=== PATIENT | male | born 1995 | race American Indian/Alaskan Native ===

== ENCOUNTER 2018-08-08 23:26 | Emergency (ER) | payer OTHER ==
[2018-08-09 02:53] VITALS: BP 122/82
--- NOTE | 2018-08-09 03:47 | XRay Report ---
PROCEDURE: LEFT SHOULDER, 3 OR MORE VIEWS TECHNIQUE: LEFT shoulder radiographs including AP views in internal and external rotation and abduct ion. CPT 69804 HISTORY: Trauma COMPARISONS: None . FINDINGS: Fracture (s) and/or Dislocation(s): None . Joint space(s): Normal . Soft tissues: Normal . Bone mineralization: Normal . Foreign bodies: None . IMPRESSION: Normal Examination . This document is electronically signed by Blayne Bowling MD., August 09 2018 03:45:53 AM ET
[2018-08-09] MEDS ORDERED: IBUPROFEN PO ONE (05:30)
--- NOTE | 2018-08-09 05:59 | Emergency Department Report ---
ED Upper Extremity Inj HPI - General Chief Complaint: Shoulder Injury Stated Complaint: LEFT ARM DISCOMFORT Time Seen by Provider: 08/09/18 05:29 Source: patient Mode of arrival: Ambulatory Limitations: No Limitations - History of Present Illness Initial Comments: -year-old [place] male who presents for left shoulder pain 4 days patient works as laborer chemical processing removed he strained his shoulder pain is described at 4/10 aching exacerbated by lifting heavy loads movement twisting pain is relieved by rest is no numbness no tingling or swelling no paralysis range of motion is intact and unrestricted MD Complaint: Injury to:: shoulder Onset/Timin -: week(s) Other Extremity Injury: Shoulder: Left Other Injuries: none Handedness: right Place: home Severity scale (0 -10): 5 Worsens With: none Associated Symptoms: denies: weakness, numbness, neck pain, heard/felt popping sensat - Related Data Previous Rx's Medication Instructions Recorded Last Taken Type Cyclobenzaprine [Flexeril] 10 mg PO TID PRN #30 tablet 08/09/18 Unknown Rx Menthol/Camphor [[place] 1 applicatio TP QID PRN #1 tube 08/09/18 Unknown Rx Ointment] Naproxen 500 mg PO BID PRN #30 tablet 08/09/18 Unknown Rx Allergies Allergy/AdvReac Type Severity Reaction Status Date / Time No Known Allergies Allergy Verified 08/08/18 23:29 ED Review of Systems ROS: Stated complaint: LEFT ARM DISCOMFORT Other details as noted in HPI Constitutional: denies: chills, fever Eyes: denies: eye pain, eye discharge, vision change ENT: denies: ear pain, throat pain Respiratory: denies: cough, shortness of breath, wheezing Cardiovascular: denies: chest pain, palpitations Endocrine: no symptoms reported Gastrointestinal: denies: abdominal pain, nausea, diarrhea Genitourinary: denies: urgency, dysuria Musculoskeletal: other (shoulder pain ). denies: back pain, joint swelling, arthralgia, myalgia Skin: as per HPI Neurological: denies: headache, weakness, paresthesias Psychiatric: denies: anxiety, depression Hematological/Lymphatic: denies: easy bleeding, easy bruising ED Past Medical Hx - Past Medical History Previous Medical History?: Yes Hx GERD: Yes (2018) - Surgical History Past Surgical History?: No - Social History Smoking Status: Never Smoker - Medications Home Medications: Home Medications Medication Instructions Recorded Confirmed Last Taken Type Cyclobenzaprine [Flexeril] 10 mg PO TID PRN #30 tablet 08/09/18 Unknown Rx Menthol/Camphor [[place] 1 applicatio TP QID PRN #1 tube 08/09/18 Unknown Rx Ointment] Naproxen 500 mg PO BID PRN #30 tablet 08/09/18 Unknown Rx ED Physical Exam - General Limitations: No Limitations General appearance: alert, in no apparent distress - Head Head exam: Present: atraumatic, normocephalic - Eye Eye exam: Present: normal appearance, PERRL, EOMI Pupils: Present: normal accommodation - ENT ENT exam: Present: normal orophraynx, mucous membranes moist, TM's normal bilaterally, normal external ear exam - Neck Neck exam: Present: normal inspection, full ROM - Respiratory Respiratory exam: Present: normal lung sounds bilaterally. Absent: respiratory distress, wheezes, stridor, chest wall tenderness - Cardiovascular Cardiovascular Exam: Present: regular rate, normal rhythm, normal heart sounds. Absent: systolic murmur, diastolic murmur, rubs, gallop - GI/Abdominal GI/Abdominal exam: Present: soft, normal bowel sounds. Absent: guarding, rigid, bruit, hernia - Rectal Rectal exam: Present: deferred - Extremities Exam Extremities exam: Present: normal inspection, full ROM, normal capillary refill. Absent: tenderness, pedal edema, joint swelling, calf tenderness - Expanded Upper Extremity Exam Left Shoulder Exam: Present: normal inspection, full ROM. Absent: tenderness, swelling, abrasion, laceration, ecchymosis, deformity, crepidus, dislocation, erythema, tenderness over AC joint Upper Arm exam: Present: normal inspection, full ROM. Absent: tenderness Elbow exam: Present: normal inspection, full ROM. Absent: tenderness Forearm Wrist exam: Present: normal inspection, full ROM. Absent: tenderness, swelling, abrasion Hand Wrist exam: Present: normal inspection, full ROM. Absent: tenderness, swelling, abrasion Neuro motor exam: Present: wrist extension intact, thumb opposition intact, thumb IP flexion intact, thumb adduction intact, fingers 2-5 abduction intact Neurosensory exam: Present: 2-point discrimination, radial nerve intact, ulnar nerve intact, median nerve intact Vascular: Present: normal capillary refill, radial pulse, brachial pulse. Absent: vascular compromise, pulse deficit radial art, pulse deficit ulnar art, pulse deficit brachial art - Back Exam Back exam: Present: normal inspection, full ROM, muscle spasm. Absent: tenderness, CVA tenderness (R), CVA tenderness (L), paraspinal tenderness, vertebral tenderness, rash noted - Neurological Exam Neurological exam: Present: alert, oriented X3, CN II-XII intact, normal gait, reflexes normal. Absent: motor sensory deficit - Psychiatric Psychiatric exam: Present: normal affect, normal mood - Skin Skin exam: Present: warm, dry, intact, normal color. Absent: rash ED Course Vital Signs 08/09/18 02:50 Temperature 98.6 F Pulse Rate 65 Respiratory 18 Rate Blood Pressure 122/82 O2 Sat by Pulse 100 Oximetry ED Medical Decision Making - Radiology Data Radiology results: report reviewed, image reviewed cc: GREG MANZANARES NP Fluoro Time In Minutes: PROCEDURE: LEFT SHOULDER, 3 OR MORE VIEWS TECHNIQUE: LEFT shoulder radiographs including AP views in internal and external rotation and abduction. CPT 92092 HISTORY: Trauma COMPARISONS: None . FINDINGS: Fracture (s) and/or Dislocation(s): None . Joint space(s): Normal . Soft tissues: Normal . Bone mineralization: Normal . Foreign bodies: None . IMPRESSION: Normal Examination . 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 5/5 there is no deformity distal pulses are intact plan NSAIDs muscle relaxants analgesic balm shoulder exercises and follow with PCP in 2-3 days return the ED should symptoms worsen patient verbalizes agreement and understanding with discharge plan DC to home in stable condition at this time Critical care attestation.: If time is entered above; I have spent that time in minutes in the direct care of this critically ill patient, excluding procedure time. ED Disposition Clinical Impression: Left shoulder strain Qualifiers: Encounter type: initial encounter Qualified Code(s): S46.912A - Strain of unspecified muscle, fascia and tendon at shoulder and upper arm level, left arm, initial encounter Disposition: TO HOME OR SELFCARE Is pt being admited?: No Does the pt Need Aspirin: No Condition: Stable Instructions: Musculoskeletal Pain (ED) Prescriptions: Cyclobenzaprine [Flexeril] 10 mg PO TID PRN #30 tablet PRN Reason: Muscle Spasm Naproxen 500 mg PO BID PRN #30 tablet PRN Reason: pain Menthol/Camphor [[place] Ointment] 1 applicatio TP QID PRN #1 tube PRN Reason: pain Referrals: CARSON FLORES [Other] - 3-5 Days Forms: Work/School Release Form(ED) Time of Disposition: 06:06
== END 2018-08-09 06:32 | disposition home or self-care (01) ==
LOC: ED 23:26
DX: S46.912A Strain of unspecified muscle, fascia and tendon at shoulder and upper arm level, left arm, initial encounter (principal); K21.9 Gastro-esophageal reflux disease without esophagitis; X58.XXXA Exposure to other specified factors, initial encounter; Y93.89 Activity, other specified; Y92.009 Unspecified place in unspecified non-institutional (private) residence as the place of occurrence of the external cause; Y99.8 Other external cause status

== ENCOUNTER 2021-09-05 18:49 | Emergency (ER) | payer SELFPAY ==
[2021-09-06] MEDS ORDERED: methylPREDNISolone Sod Succinate 125 MG/2 ML INJ IV ONE (00:54)
[2021-09-06] MEDS ORDERED: MAGNESIUM SULFATE 2 GM/50 ML BAG IV ONE (00:54)
[2021-09-06] MEDS ORDERED: ALBUTEROL 2.5 MG/3 ML NEBU IH ONE (00:54)
[2021-09-06] MEDS ORDERED: IPRATROPIUM 0.02% NEBU 2.5 ML IH ONE (00:55)
--- NOTE | 2021-09-06 02:12 | Emergency Department Report ---
ED Asthma HPI - General Chief Complaint: Chest Pain Stated Complaint: CHEST/HEAD TENSION Time Seen by Provider: 09/06/21 00:50 Source: patient Mode of arrival: Ambulatory Limitations: No Limitations - Related Data Previous Rx's Medication Instructions Recorded Last Taken Type Cyclobenzaprine [Flexeril] 10 mg PO TID PRN #30 tablet 08/09/18 Unknown Rx Menthol/Camphor [[place] 1 applicatio TP QID PRN #1 tube 08/09/18 Unknown Rx Ointment] Naproxen 500 mg PO BID PRN #30 tablet 08/09/18 Unknown Rx Allergies Allergy/AdvReac Type Severity Reaction Status Date / Time No Known Allergies Allergy Verified 08/08/18 23:29 ED Review of Systems ROS: Stated complaint: CHEST/HEAD TENSION Other details as noted in HPI ED Past Medical Hx - Past Medical History Hx Hypertension: Yes Hx GERD: Yes (2018) Hx Asthma: Yes - Social History Smoking Status: Never Smoker - Medications Home Medications: Home Medications Medication Instructions Recorded Confirmed Last Taken Type Cyclobenzaprine [Flexeril] 10 mg PO TID PRN #30 tablet 08/09/18 Unknown Rx Menthol/Camphor [[place] 1 applicatio TP QID PRN #1 tube 08/09/18 Unknown Rx Ointment] Naproxen 500 mg PO BID PRN #30 tablet 08/09/18 Unknown Rx ED Physical Exam - General Limitations: No Limitations ED Course Vital Signs 09/05/21 18:58 Temperature 98.1 F Pulse Rate 80 Respiratory 18 Rate Blood Pressure 126/74 [Right] O2 Sat by Pulse 100 Oximetry Critical care attestation.: If time is entered above; I have spent that time in minutes in the direct care of this critically ill patient, excluding procedure time. ED Disposition Condition: Stable Referrals: FADY MEJIA MD [Primary Care Provider] - 3-5 Days
[2021-09-06] MEDS ORDERED: LIDOCAINE VISCOUS 2% 15 ML ORAL LIQD PO ONE (12:38)
[2021-09-06] MEDS ORDERED: ALUM-MAG HYDROXIDE-SIMETHICONE 200-200-20MG/5ML ORAL LIQD 30 ML PO ONE (12:38)
[2021-09-06] MEDS ORDERED: DICYCLOMINE 10 MG/5 ML ORAL LIQD PO ONE (12:38)
--- NOTE | 2021-09-06 13:25 | Emergency Department Report ---
ED General Adult HPI - General Chief complaint: Chest Pain Stated complaint: CHEST/HEAD TENSION Time Seen by Provider: 09/06/21 00:50 Source: patient Mode of arrival: Ambulatory Limitations: No Limitations - History of Present Illness Initial comments: 26-year-old black male with no past medical history no known family history of CAD presents to the emergency department for evaluation of 2-week history of lower mid chest pain along with intermittent tension in his head. He denies shortness of breath, dizziness, nausea, vomiting, fever, and diaphoresis. States that pain is intermittent. He states that he has intermittent pressure to his follow-up of his head but denies any head pressure at this time. He states that chest pain at its worst is 5 out of 10. MD Complaint: Chest pain and pressure to head -: Gradual, week(s) (To) Location: chest Radiation: non-radiation Severity scale (0 -10): 6 Quality: burning, aching Associated Symptoms: chest pain, headaches. denies: cough, diaphoresis, fever/chills, loss of appetite, malaise, nausea/vomiting, rash, seizure, shortness of breath, syncope, weakness Treatments Prior to Arrival: none - Related Data Previous Rx's Medication Instructions Recorded Last Taken Type Cyclobenzaprine [Flexeril] 10 mg PO TID PRN #30 tablet 08/09/18 Unknown Rx Menthol/Camphor [[place] 1 applicatio TP QID PRN #1 tube 08/09/18 Unknown Rx Ointment] Naproxen 500 mg PO BID PRN #30 tablet 08/09/18 Unknown Rx Famotidine [Pepcid] 20 mg PO DAILY #30 tablet 09/06/21 Unknown Rx Allergies Allergy/AdvReac Type Severity Reaction Status Date / Time No Known Allergies Allergy Verified 08/08/18 23:29 ED Review of Systems ROS: Stated complaint: CHEST/HEAD TENSION Other details as noted in HPI Comment: All other systems reviewed and negative Constitutional: denies: chills, fever Eyes: denies: eye pain, eye discharge, vision change ENT: denies: ear pain, throat pain, dental pain, congestion Respiratory: denies: cough, orthopnea, shortness of breath, SOB with exertion, SOB at rest Cardiovascular: chest pain. denies: palpitations, dyspnea on exertion, orthopnea, edema, syncope, paroxysmal nocturnal dyspnea Gastrointestinal: denies: abdominal pain, nausea, vomiting, diarrhea, hematemesis, melena, hematochezia Musculoskeletal: denies: back pain Skin: denies: rash, lesions Neurological: headache. denies: weakness, numbness, paresthesias, confusion, abnormal gait, vertigo ED Past Medical Hx - Past Medical History Hx GERD: Yes (2018) - Social History Smoking Status: Never Smoker - Medications Home Medications: Home Medications Medication Instructions Recorded Confirmed Last Taken Type Cyclobenzaprine [Flexeril] 10 mg PO TID PRN #30 tablet 08/09/18 Unknown Rx Menthol/Camphor [[place] 1 applicatio TP QID PRN #1 tube 08/09/18 Unknown Rx Ointment] Naproxen 500 mg PO BID PRN #30 tablet 08/09/18 Unknown Rx Famotidine [Pepcid] 20 mg PO DAILY #30 tablet 09/06/21 Unknown Rx ED Physical Exam - General Limitations: No Limitations General appearance: alert, in no apparent distress - Head Head exam: Present: atraumatic, normocephalic - Eye Eye exam: Present: normal appearance. Absent: conjunctival injection - ENT ENT exam: Present: normal orophraynx. Absent: normal exam (Bilateral nasal mucosal edema with tenderness to frontal sinus areas) - Neck Neck exam: Present: normal inspection, full ROM. Absent: tenderness, lymphadenopathy - Respiratory Respiratory exam: Present: normal lung sounds bilaterally. Absent: respiratory distress, wheezes, rales, rhonchi, chest wall tenderness, accessory muscle use, decreased breath sounds - Cardiovascular Cardiovascular Exam: Present: regular rate, normal heart sounds - GI/Abdominal GI/Abdominal exam: Present: soft, tenderness (Epigastric area), normal bowel sounds. Absent: distended, guarding, rebound, rigid - Extremities Exam Extremities exam: Present: normal inspection, normal capillary refill. Absent: tenderness, pedal edema, joint swelling, calf tenderness - Back Exam Back exam: Present: normal inspection. Absent: CVA tenderness (R), CVA tenderness (L) - Neurological Exam Neurological exam: Present: alert, oriented X3, CN II-XII intact, normal gait, reflexes normal. Absent: motor sensory deficit - Psychiatric Psychiatric exam: Present: normal affect, normal mood - Skin Skin exam: Present: warm, dry, intact, normal color ED Course Vital Signs 09/05/21 09/06/21 18:58 13:41 Temperature 98.1 F Pulse Rate 80 72 Respiratory 18 16 Rate Blood Pressure 126/74 128/76 [Right] O2 Sat by Pulse 100 100 Oximetry - Reevaluation(s) Reevaluation #1: 09/06/21 13:22 Pain resolved. ED Medical Decision Making - EKG Data Interpretation: no acute changes, normal EKG - Radiology Data Radiology results: report reviewed, image reviewed - Medical Decision Making 26-year-old black male with no past medical history no known family history of CAD presents to the emergency department for evaluation of 2-week history of lower mid chest pain along with intermittent tension in his head. He denies shortness of breath, dizziness, nausea, vomiting, fever, and diaphoresis. States that pain is intermittent. He states that he has intermittent pressure to his follow-up of his head but denies any head pressure at this time. He states that chest pain at its worst is 5 out of 10 Pain noted to be in epigastric area on assessment and pain was relieved after GI cocktail. EKG without acute ischemic changes noted, and low suspicion for CAD. Symptoms and assessment consistent with GERD symptoms, and patient will be discharged home with prescription for Pepcid to take and advised to follow-up with primary care provider if worsening symptoms. Head pressure consistent with sinusitis, and he was advised to use [id number] sinus medication to improve symptoms. Critical care attestation.: If time is entered above; I have spent that time in minutes in the direct care of this critically ill patient, excluding procedure time. ED Disposition Clinical Impression: Epigastric pain Disposition: HOME / SELF CARE / HOMELESS Is pt being admited?: No Does the pt Need Aspirin: No Condition: Stable Instructions: Heartburn, [id number], Gastroesophageal Reflux Disease, Adult, [id number] Additional Instructions: Take medications as prescribed. Follow-up with primary care provider if no improvement or worsening symptoms. Prescriptions: Famotidine [Pepcid] 20 mg PO DAILY #30 tablet Referrals: FADY MEJIA MD [Primary Care Provider] - 3-5 Days Time of Disposition: 13:25
[2021-09-06 13:42] VITALS: BP 128/76
--- NOTE | 2021-09-08 14:05 | Electrocardiograph Report ---
[facility] Test Date: 2021-09-05 Test Time: 19:12:33 Pat Name: WAI HAYES Department: Room: Gender: M [employer]oth Bin P[employer]: LULU : 1995 Requested By: VIC HAWTHORNE Order Number: [id number] Reading MD: Alban Patel Measurements Intervals [place] Rate: 74 P: 70 MS: 180 QRS: 74 QRSD: 86 T: 52 QT: 363 QTc: 404 Interpretive Statements Sinus arrhythmia Probable left atrial enlargement No previous ECG available for comparison Electronically Signed On 09-08-2021 14:05:29 EDT by Alban Patel
== END 2021-09-06 13:40 | disposition home or self-care (01) ==
LOC: ED 18:49
DX: R10.13 Epigastric pain (principal)
CPT/HCPCS: 93005; 99282